=== PATIENT | female | born 1945 | race Caucasian/White ===

== ENCOUNTER 2019-06-07 07:52 | Day surgery (SDC) | payer OTHER, MEDICARE ==
[2019-06-03 09:45] VITALS: BMI 23.1
[2019-06-07] MEDS ORDERED: PROPOFOL 20 ML ONE ×2 (10:19)
[2019-06-07] MEDS ORDERED: LIDOCAINE HCL/PF 2% SDV 5ML VIAL ONE (10:19)
[2019-06-07 11:01] VITALS: TEMP 98
[2019-06-07 11:21] VITALS: BP 106/69; PULSE 74
--- NOTE | 2019-06-09 16:22 | PATH ---
Surgical Pathology Report Patient Name: PIPER ROLDAN [facility]. Rec. #: [id number] /Age/Gender: 1945 (Age: 74) / F Account: [id number] [facility] Taken: 06/07/2019 Received: 06/07/2019 Reported: 06/09/2019 Physicians: Judah Kyle M.D. Specimen(s) Received BX POLYP CECUM Clinical History History of polyps Postoperative diagnosis: Colon polyp, diverticulosis Final Diagnosis CECUM, POLYP, BIOPSY: TUBULAR ADENOMA. Electronically Signed Priya Gonzalez M.D. Gross Description Received in formalin, labeled "biopsy polyp cecum" is a warner, irregular portion of soft tissue measuring 1.2 cm. in greatest dimension. The specimen is submitted in toto in one cassette. 06/08/201906/08/2019
== END 2019-06-07 11:15 | disposition home or self-care (01) ==
LOC: FASU-ENDO 07:52
PROVIDERS: ATTEND Internal Medicine Gastroenterology
PROC: 0DBH8ZX Excision of Cecum, Via Natural or Artificial Opening Endoscopic, Diagnostic (ICD-10-PCS; principal; 2019-06-07 10:20)
DX: Z86.010 Personal history of colon polyps (principal); D12.0 Benign neoplasm of cecum; K57.30 Diverticulosis of large intestine without perforation or abscess without bleeding
CPT/HCPCS: 88305-TC

== ENCOUNTER 2024-03-22 08:20 | Day surgery (SDC) | payer OTHER, MEDICARE ==
[2024-03-18 08:50] VITALS: BMI 25.4
[2024-03-22 09:47] VITALS: TEMP 97.1
[2024-03-22 10:11] VITALS: RESP 18
[2024-03-22 10:56] VITALS: BP 124/71; PULSE 80
== END 2024-03-22 10:45 | disposition home or self-care (01) ==
LOC: FASU-ENDO 08:20
PROVIDERS: ATTEND Internal Medicine Gastroenterology
PROC: 0DJD8ZZ Inspection of Lower Intestinal Tract, Via Natural or Artificial Opening Endoscopic (ICD-10-PCS; principal; 2024-03-22 09:13)
DX: Z12.11 Encounter for screening for malignant neoplasm of colon (principal); K57.30 Diverticulosis of large intestine without perforation or abscess without bleeding; Z86.010 Personal history of colon polyps

== ENCOUNTER 2024-10-02 12:24 | Emergency (ER) | payer OTHER, MEDICARE ==
[2024-10-02 12:39] VITALS: BP 135/76; PULSE 83; RESP 18; TEMP 97.8; BMI 24.5
[2024-10-02] MEDS ORDERED: DIPHTH,PERTUSS(ACELL),TET 0.5 ML DISP.SYRIN IM ONE ×2 (13:39→13:44)
[2024-10-02] MEDS: DIPHTH,PERTUSS(ACELL),TET 0.5 ML DISP.SYRIN IM ONE (13:42)
== END 2024-10-02 13:45 | disposition home or self-care (01) ==
LOC: FER 12:24
PROC: 3E0234Z Introduction of Serum, Toxoid and Vaccine into Muscle, Percutaneous Approach (ICD-10-PCS; principal; 2024-10-02)
DX: S00.01XA Abrasion of scalp, initial encounter (principal); W19.XXXA Unspecified fall, initial encounter; Y93.01 Activity, walking, marching and hiking; Z23 Encounter for immunization
CPT/HCPCS: 90471; 90715; 99284-25